=== PATIENT | male | born 1980 | race Caucasian/White ===

== ENCOUNTER 2020-07-31 07:39 | Day surgery (SDC) | payer OTHER ==
[~2020-07-31] VITALS: Ht 177.8 cm; Wt 106.0 kg
[2020-07-31] VITALS (15 sets, daily range): BP systolic 106–117; BP diastolic 67–86; PULSE 63–82; TEMP 97.2; O2SAT 98–99
[~2020-07-31 07:39] MED LIST: NO HOME MEDICATIONS
[2020-07-31] MEDS ORDERED: LOVENOX150 MG/ML SQ (08:04)
[2020-07-31] MEDS ORDERED: XARELTO20 MG PO (08:06)
[2020-07-31 08:47] LABS: HEMATOCRIT 45.5 % (42.0-52.0); HEMOGLOBIN 15.3 g/dl (13.5-18.0); MEAN CELL VOLUME 87 fl (80.0-100.0); MEAN CORPUSCULAR HEMOGLOBIN 29 pg (27.0-31.0); MEAN CORPUSCULAR HGB CONC 34 g/dl (33.0-37.0); MEAN PLATELET VOLUME 10.5 fl (7.4-10.4); PLATELET COUNT 228 K/mm3 (130-400); RED BLOOD COUNT 5.21 M/mm3 (4.20-5.60); REDCELL DISTRIBUTION WIDTH-CV 13.1 % (11.5-14.5)
[2020-07-31 08:53] LABS: PROTHROMBIN TIME 11.3 SECONDS (9.7-12.8)
[2020-07-31 08:55] LABS: CALCIUM 9.3 mg/dL (8.4-10.2); PARTIAL THROMBOPLASTIN TIME 32.8 SECONDS (26.0-37.0); POTASSIUM 4.1 mmol/L (3.4-5.0)
--- NOTE | 2020-07-31 09:01 | NUR ---
SEE MERGE FOR ALL MEDICATION ADMIN. TIMES, INTRA AND POST SEDATION ASSESSMENTS
--- NOTE | 2020-07-31 09:50 | NUR ---
PT RECIEVED FROM [facility] VIA BED, AWAKE AND ALERT, HOB ELEVATED. IN ROOM, NO C/O, TELE ON. REVIEWED ACTIVITY ORDERS WITH PT, TAKES SPRITE, MEAL ORDERED
--- NOTE | 2020-07-31 10:36 | NUR ---
CON'T TO SITE UP IN BED, EATS MEAL, NO C/O, DR CARDENAS IN EARLIER TO TALK WITH
--- NOTE | 2020-07-31 11:00 | NUR ---
CON'T SAME, SITS UP IN BED, NO C/O
--- NOTE | 2020-07-31 12:00 | NUR ---
BAND RELEASED IN 2-3 INCREMENTS OVER 15 MIN. NO BLEEDING NOTED. BANDAID OVER SITE. PT UP TO B/R, UP IN ROOM, REVIEWED DISCHARGE INST. WITH PT, CALL TO JENNIFER CARRASCO WITH DR CARDENAS WITH QUESTIONS ON LOVENOX CONTINUATION, NEW ORDERS WILL BE ADDED, REVIEWED OTHER DISCHARGE INST. WITH PT ON ACTIVITY, FOLLOWUP AND PRECAUTIONS WITH VERBAL UNDERSTANDING. INT D'CD INTACT. PT DISCHARGED AMB. AFTER WAITING FOR LOVENOX ORDERS AT 1300 WITH AND STAFF
== END 2020-07-31 13:00 | disposition home or self-care (01) ==
LOC: COL.CAR 07:39
PROVIDERS: Internal Medicine Cardiovascular Disease
DX: R07.89 Other chest pain (principal); D68.59 Other primary thrombophilia; Z20.828 Contact with and (suspected) exposure to other viral communicable diseases; M79.662 Pain in left lower leg; M79.661 Pain in right lower leg; F90.9 Attention-deficit hyperactivity disorder, unspecified type; Z86.718 Personal history of other venous thrombosis and embolism; Z79.01 Long term (current) use of anticoagulants; Z79.82 Long term (current) use of aspirin; I83.893 Varicose veins of bilateral lower extremities with other complications; Z87.891 Personal history of nicotine dependence; Z79.899 Other long term (current) drug therapy
CPT/HCPCS: C1769; J1644; J2250; J3010